=== PATIENT | female | born 1965 | race Caucasian/White ===

== ENCOUNTER 2021-02-15 00:21 | Emergency (ER) | payer OTHER ==
[~2021-02-15 00:21] MED LIST: ALL DAY ALLERGY10 M2 PO; AZITHROMYCIN250 MG PO; BREO ELLIPTA 11 EACH INH; PROAIR HFA8.5 GM INH; SINGULAIR10 MG PO; SPIRIVA RESPIMAT4 G1 INH
[2021-02-15 01:40] LABS: BILIRUBIN NEGATIVE (NEGATIVE); BLOOD 1+ Ery/uL (NEGATIVE); CLARITY CLEAR (CLEAR); COLOR YELLOW (YELLOW); GLUCOSE (U) NORMAL (NORMAL); LEUKOCYTES NEGATIVE Leu/uL (NEGATIVE); NITRITE NEGATIVE (NEGATIVE); PROTEIN TRACE (LOW) mg/dL (NEGATIVE); SPECIFIC GRAVITY >=1.030 (1.001-1.030); UROBILINOGEN 0.2 mg/dL (0.2-1.0)
[2021-02-15 02:08] LABS: BACTERIA TRACE; MUCOUS MODERATE; URINARY RBC RARE
[2021-02-15] MEDS ORDERED: IBUPROFEN800 MG PO (03:42)
[2021-02-15] MEDS ORDERED: TIZANIDINE HCL4 M1 PO (03:42)
[2021-02-15] MEDS ORDERED: MEDROL 4MG DOSEP4 MG PO (03:42)
== END 2021-02-15 03:54 | disposition home or self-care (01) ==
LOC: FER 00:21
PROVIDERS: Internal Medicine
DX: M54.16 Radiculopathy, lumbar region (principal); R11.0 Nausea; J45.909 Unspecified asthma, uncomplicated; Z79.899 Other long term (current) drug therapy
CPT/HCPCS: 81001; 96372; 99284; J1100; J2270